=== PATIENT | male | born 1995 | race Caucasian/White ===

== ENCOUNTER 2019-08-17 11:46 | Emergency (ER) | payer BC ==
[~2019-08-17] VITALS: Ht 180.3 cm; Wt 79.4 kg
--- NOTE | 2019-08-17 11:46 | NUR ---
Patient BIBA ALS accompanied by [facility], transferred to bed 5. RN evaluating patient at bedside.
--- NOTE | 2019-08-17 11:47 | NUR ---
PT PLACED INTO BED 5. SAFTEY PRECAUTIONS IMPLEMENTED. 1:1 SITTER AT BEDSIDE.
[2019-08-17] MEDS ORDERED: NACL 0.9% 1,000 ML IV ONE ×2 (11:50→17:00)
--- NOTE | 2019-08-17 11:56 | NUR ---
Dr. Clark is evaluating the patient at bedside.
[2019-08-17 11:58] VITALS: BP 128/74
[2019-08-17 12:24] LABS: BASOPHILS % (AUTO) 0.6 % (0.0-2.0); EOSINOPHILS % (AUTO) 0.3 % (0.0-4.0); HEMATOCRIT 42.9 % (36-52); HEMOGLOBIN 13.9 g/dL (12.0-18.0); LYMPHOCYTES # (AUTO) 1.5 K/uL (2.0-11.5); LYMPHOCYTES % (AUTO) 21.7 % (20.5-51.1); MEAN CORPUSCULAR HEMOGLOBIN 30 pg (27-31); MEAN CORPUSCULAR HGB CONC 32 g/dL (33-37); MEAN CORPUSCULAR VOLUME 91.6 fL (80-94); MONOCYTES # (AUTO) 0.4 K/uL (0.8-1.0); MONOCYTES % (AUTO) 5.6 % (1.7-9.3); NEUTROPHILS % (AUTO) 71.8 % (42.2-75.2); PLATELET COUNT (AUTO) 197 K/uL (140-450); RED BLOOD CELL COUNT(AUTO) 4.69 MIL/uL (4.20-6.10); RED CELL DISTRIBUTION WIDTH 13.8 % (11.6-13.7)
[2019-08-17] MEDS ORDERED: FLUMAZENIL 0.5 MG/5 ML VIAL IVP ONE (12:30)
[2019-08-17 12:36] LABS: ALBUMIN 4.2 g/dL (3.4-5.0); ANION GAP 11.4 (8-16); ASPARTATE AMINOTRANSFERASE 26 U/L (15-37); CARBON DIOXIDE 30.5 mmol/L (21-32); CHLORIDE 104 mmol/L (98-107); CREATININE 0.9 mg/dL (0.6-1.3); GFR ARICAN-AMERICAN 136 mL/min (>90); GLUCOSE 87 mg/dL (74-106); POTASSIUM 3.9 mmol/L (3.5-5.1); SODIUM SERUM 142 mmol/L (136-145); TOTAL BILIRUBIN 0.5 mg/dL (0.0-1.0); UREA NITROGEN, BLOOD 7 mg/dL (7-18)
--- NOTE | 2019-08-17 12:41 | NUR ---
CALL TO [facility]. SPOKE WITH JULI. RECCOMENDATIONS: NO MORE FLUMAZENIL. WATCH FOR QT PROLONGATION. OBS FOR 12 HRS. MONITOR FOR LABS (NA, K+) DR RAMIREZ MADE AWARE.
[2019-08-17 12:52] LABS: SALICYLATE < 2.8 mg/dL (2.8-20.0)
[2019-08-17 13:56] LABS: BARBITURATE, URINE NEG. ng/ml (NEG <=200); BENZODIAZEPINE, URINE POS. ng/mL (NEG <=200); CANNABINOID, URINE NEG. ng/mL (NEG <=50); COCAINE, URINE NEG. ng/mL (NEG <=300); OPIATE, URINE NEG. ng/mL (NEG <=2000); PHENCYCLIDINE SCREEN,URINE NEG. ng/mL (NEG <=25)
--- NOTE | 2019-08-17 14:17 | NUR ---
PT SLEEPING IN BED WITH FATHER AT BEDSIDE. BOTH SIDE RAILS UP FOR SAFETY
[2019-08-17 14:19] LABS: ACETAMINOPHEN < 0.5 ug/ml (10-30)
--- NOTE | 2019-08-17 15:42 | NUR ---
Received intake paperwork and the following facilities were reached for possible bed placement for continuity of care. [facility] Will keep facility updated with any information of progress.
--- NOTE | 2019-08-17 15:49 | NUR ---
FOLOW UP WITH [facility]. GAVE UPDATE. [facility] TO FOLLOW UP.
--- NOTE | 2019-08-17 16:00 | NUR ---
SBP 84. DR RAMIREZ AWARE. ORDER FOR 1 L NS BOLUS RECD.
--- NOTE | 2019-08-17 16:36 | NUR ---
PT IN BED SLEEPING. MOTHER AND FATHER AT BEDSIDE. FLUIDS RUNNING. 2 SIDE RAILS UP FOR SAFETY.
--- NOTE | 2019-08-17 17:55 | NUR ---
PT SLEEPING IN BED. FLUIDS RUNNING. FATHER AT BEDSIDE. BOTH SIDE RAILS UP FOR SAFETY.
--- NOTE | 2019-08-17 19:12 | NUR ---
GAVE REPORT TO CHRIS MONTAÑO
--- NOTE | 2019-08-17 19:15 | NUR ---
RECEIVED REPORT FROM CHRIS JEAN. WILL CONT. CARE AT THIS TIME.
--- NOTE | 2019-08-17 19:21 | NUR ---
Telepsychiatry consultation ordered.
--- NOTE | 2019-08-17 19:24 | NUR ---
PT TALKING TO TELEPSYCH WITH MOTHER AT BEDSIDE.
--- NOTE | 2019-08-17 19:36 | NUR ---
Call Center aware of patient. Waiting for new facesheet to be fax. Will continue to assist with placement
--- NOTE | 2019-08-17 21:20 | NUR ---
Fax packet to [facility]. S/W Alejandro. Doing nurse to nurse for possible admission
--- NOTE | 2019-08-17 21:30 | NUR ---
SPOKE TO [facility] AND SPOKE WITH VIRIDIANA MANRIQUEZ. PT IS ACCEPTED TO [facility] HOWEVER, PT NEEDS TO HAVE A STEADY GAIT BEFORE GETTING ACCEPTED. PT TRIED A GAIT WALK TEST BUT WAS UNSTEADY AND SAID HE WAS DIZZY. VSS. DR. MULLER IS THE ACCEPTING DR FROM [facility]. SPOKE WITH DR. CAMARENA AND SAID PT NEEDS TO STAY OVERNIGHT TO GET BETTER BEFORE GETTING TRANSFERRED TO FACILITY.
--- NOTE | 2019-08-17 21:55 | NUR ---
Per [facility], patient is not medically cleared. Dizziness, unsteady gait. MD will keep overnight to monitor. Will call [facility] in the am for report and if bed still available
--- NOTE | 2019-08-17 22:10 | NUR ---
PT PARENTS AT BEDSIDE. PT IS SLEEPING. EQUAL CHEST RISE AND FALL. NO RESP DISTRESS NOTED. WILL CONT. TO MONITOR.
--- NOTE | 2019-08-17 23:10 | NUR ---
PT FAMILY BROUGHT HIM FOOD. PT ABLE TO TOLERATE EATING.
--- NOTE | 2019-08-17 23:21 | NUR ---
DID TEST WALK WITH PT. PT STILL SAYS HES DIZZY. UNSTEADY GAIT STILL BUT IMPROVED FROM LAST TEST RUN. WILL TRY AGAIN.
--- NOTE | 2019-08-18 01:00 | NUR ---
PT DID A TEST RUN FOR STEADY GAIT. GAIT IS IMPROVING NO DIZZY PRESENT WHEN AMBULATING.
--- NOTE | 2019-08-18 03:00 | NUR ---
PT SLEEPING COMFORTABLY. EQUAL CHEST RISE AND FALL. NO DISTRESS NOTED. FAMILY MEMBER SLEEPING AT BEDSIDE.
--- NOTE | 2019-08-18 05:06 | NUR ---
Will endorse to next incoming shift to monitor documentation. Once patient is medically cleared, will call [facility] for bed availability
--- NOTE | 2019-08-18 06:04 | NUR ---
CALLED BACK [facility] AND SPOKE TO SENA CURRIE. ROSEY SAID PT NO LONGER HAS BED AVAIABLE TO TRY CALLING BACK AGAIN AFTER 929.
--- NOTE | 2019-08-18 06:48 | NUR ---
FAMILY AWARE OF SITUATION, ERMD KNOWS WELL, WILL DELEGATE AND ENDORSE DAY SHIFT TO FOLLOW UP ON FACILITY FOR PLACEMENT.
--- NOTE | 2019-08-18 07:14 | NUR ---
RECEIVED REPORT FROM DANYEL PEREZ.
--- NOTE | 2019-08-18 07:18 | NUR ---
Pt report given to CHRIS SINGH. Transfer of care at this time. ALSO ENDORESED TO FOLLOW UP ON [facility] FOR PLACEMENT AND TO AMBULATE PT. Addendum: 08/18/19 at 0848 by MED1 PT DENIES TO HURT HIMSELF AT THIS TIME. [id number].
--- NOTE | 2019-08-18 07:39 | NUR ---
PARENT AT BEDSIDE. FOOD TRAY PROVIDES FOR PATIENT WITH STERRFORM AT THIS TIME. Addendum: 08/18/19 at 0805 by MED1 ATE 50 % OF FOOD.
--- NOTE | 2019-08-18 08:49 | NUR ---
BROTHER AT BEDSIDE.
--- NOTE | 2019-08-18 09:05 | NUR ---
Pt report given to ROBERT PEREZ. Transfer of care at this time.
--- NOTE | 2019-08-18 09:20 | NUR ---
REPORTS RECEIVED FROM CHRIS SINGH.
--- NOTE | 2019-08-18 09:31 | NUR ---
RECEIVED PHONE CALL FROM [facility] AND REPOKE TO OCTOBER.
--- NOTE | 2019-08-18 10:56 | NUR ---
SPOKE WITH INTAKE NURSE AT [facility]. WAITING FOR DOCTOR TO DISCHARGE PATIENTS, [facility] TO CALL BACK IF BED OPENS.
--- NOTE | 2019-08-18 11:30 | NUR ---
Followup calls to the following facilities: [facility]: s/w [place], Beds full for the day. [facility]: Possible openings today, will continue to follow up. [facility]w [facility], states possible discharges, but currently full. Packet faxed for waitlist.
--- NOTE | 2019-08-18 11:49 | NUR ---
PT IS EATING IN THE BED.FAMILY MEMBER IS AT BEDSIDE.
--- NOTE | 2019-08-18 13:32 | NUR ---
PT IS SLEEPING IN THE BED. PARENTS ARE AT BEDSIDE. 1:1 SITTER IS AT BEDSIDE.
--- NOTE | 2019-08-18 13:43 | NUR ---
Patient to be transferred to [facility]. Is being transferred due to psychiatric issue. Receiving facility has accepting physician and available space. ER physician has signed transfer form. Patient or responsible alliance party has agreed to transfer and signed form. Patient belongings inventoried and will be sent with patient. Copy of nursing notes, lab reports, EKG, Physicians Orders and X-rays to be sent with patient. Report called to CHRIS Anton at receiving facility.
[2019-08-18 14:42] VITALS: BP 113/67
--- NOTE | 2019-08-18 14:45 | NUR ---
Patient to be transferred to [place]. Is being transferred due to psychiatric hold. Receiving facility has accepting physician and available space. ER physician has signed transfer form. Patient or responsible libertarian has agreed to transfer and signed form. Patient belongings inventoried and will be sent with patient. Copy of nursing notes, lab reports, EKG, Physicians Orders and X-rays to be sent with patient. Report called to CHRIS Anton at receiving facility.
== END 2019-08-18 14:45 ==
LOC: MED 11:46
DX: R45.851 Suicidal ideations (principal); F32.89 Other specified depressive episodes
CPT/HCPCS: 36415; 80053; 80305; 81002; 85025; 93005; 96374; 99285; G0480; G0482; J3490; J7030